=== PATIENT | male | born 1965 | race African-American/Black ===

== ENCOUNTER 2019-02-15 11:48 | Inpatient (IN) | payer MEDICAID ==
[2019-02-15] MEDS ORDERED: NS 1,000 ML IV ONE (12:51)
[2019-02-15] MEDS ORDERED: ONDANSETRON 4 MG/2 ML VIAL IVP ONE (12:51)
[2019-02-15] MEDS ORDERED: METOCLOPRAMIDE 10 MG/2 ML VIAL IVP ONE (12:57)
[2019-02-15] MEDS ORDERED: HYDROmorphONE/DILAUDID 2 MG/ML INJ IVP ONE (12:57)
[2019-02-15] MEDS ORDERED: NS 2,600 ML IV ONE (12:58)
[2019-02-15] MEDS ORDERED: ACETAMINOPHEN 500 MG TAB PO ONE (13:00)
--- NOTE | 2019-02-15 13:02 | EDPHY ---
H & P Stated Complaint: abd pain/N/V Time Seen by Provider: 02/15/19 12:54 HPI/ROS: CHIEF COMPLAINT: Nausea vomiting, fever HISTORY OF PRESENT ILLNESS: The patient is a 53-year-old man who comes to the emergency department complaining of 2 days of nausea and vomiting as well as a fever. He denies chest pain or shortness of breath. No upper respiratory symptoms. No urinary symptoms. He has not had diarrhea. He has not had any sick contacts that he knows. He has never had symptoms like this before. He denies any significant abdominal pain but does have cramping in his left upper quadrant. No back pain or flank pain. Severity: Moderate Modifying factors: No improvement with TheraFlu REVIEW OF SYSTEMS: Constitutional: denies: chills, fever, recent illness, recent injury EENTM: denies: blurred vision, double vision, nose congestion Respiratory: denies: cough, shortness of breath Cardiac: denies: chest pain, irregular heart rate, lightheadedness, palpitations Gastrointestinal/Abdominal: See HPI Genitourinary: denies: dysuria, frequency, hematuria, pain Musculoskeletal: denies: joint pain, muscle pain Skin: denies: lesions, rash, jaundice, bruising Neurological: denies: headache, numbness, paresthesia, tingling, dizziness, weakness Hematologic/Lymphatic: denies: blood clots, easy bleeding, easy bruising Immunologic/allergic: denies: HIV/AIDS, transplant 10 systems reviewed and negative except as noted EXAM: GENERAL: Moderate distress HEAD: Atraumatic, normocephalic. EYES: Pupils equal round and reactive to light, extraocular movements intact, sclera anicteric, conjunctiva are normal. ENT: TMs normal, nares patent, oropharynx clear without exudates. Dry mucous membranes. NECK: Normal range of motion, supple without lymphadenopathy or JVD. LUNGS: Breath sounds clear to auscultation bilaterally and equal. No wheezes rales or rhonchi. HEART: Tachycardic, Regular rhythm without murmurs, rubs or gallops. ABDOMEN: Soft, nontender, normoactive bowel sounds. No guarding, no rebound. No masses appreciated. BACK: No CVA tenderness, no spinal tenderness, step-offs or deformities EXTREMITIES: Normal range of motion, no pitting or edema. No clubbing or cyanosis. NEUROLOGICAL: Cranial nerves II through XII grossly intact. Normal speech, normal gait. 5/5 strength, normal movement in all extremities, normal sensation , normal reflexes PSYCH: Normal mood, normal affect. SKIN: Warm, dry, normal turgor, no visible rashes or lesions. Source: Patient Exam Limitations: No limitations - Personal History Current Tetanus/Diphtheria Vaccine: No - Medical/Surgical History Hx Asthma: No Hx Chronic Respiratory Disease: Yes Hx Diabetes: No Hx Cardiac Disease: Yes Hx Renal Disease: No Hx Cirrhosis: No Hx Alcoholism: No Other PMH: HTN - Family History Significant Family History: No pertinent family hx - Social History Smoking Status: Heavy smoker Alcohol Use: None Constitutional: Initial Vital Signs Temperature (C) 38.1 C 02/15/19 11:58 Heart Rate 131 H 02/15/19 11:58 Respiratory Rate 18 02/15/19 11:58 Blood Pressure 150/90 H 02/15/19 11:58 O2 Sat (%) 88 L 02/15/19 11:58 O2 Delivery Mode Room Air O2 (L/minute) 2 Allergies/Adverse Reactions: No Known Allergies Allergy (Unverified 02/15/19 12:01) Home Medications: Medication Instructions Recorded FLUoxetine [Prozac 20 MG (*)] 20 mg PO DAILY 02/15/19 Gabapentin [Neurontin 300 MG (*)] 300 mg PO BID 02/15/19 traZODone [traZODONE 50MG (*)] 50 mg PO HS 02/15/19 Medical Decision Making - Diagnostics Imaging Results: Imaging Impressions Abdomen CT 02/15/19 12:58 Impression: 1. Airspace consolidation in the lower lungs bilaterally suggestive of multilobar pneumonia. 2. Nonspecific bowel gas pattern without features of obstruction. 3. Bilateral spondylolysis and grade 1 spondylolisthesis with degenerative disk disease at L4-L5. Results called to Dr. Tee Teague at 2:25 PM. Chest X-Ray 02/15/19 14:24 Impression: Bilateral lower lobe pneumonia. Imaging: Discussed imaging studies w/ call center director Radiologist ED Course/Re-evaluation: Patient qualifies as severe sepsis. He is stable vital signs. He has received his fluid bolus. He has received antibiotics and lactate is being repeated. I will admit for bilateral pneumonia. He is slightly hypoxic on room air at 88%. Differential Diagnosis: Partial list of the Differential diagnosis considered include but were not limited to; pneumonia, gastroenteritis and although unlikely based on the history and physical exam, I also considered perforation, ischemia, volvulus, acute coronary disease. Critical Care Time: Critical care time spent by , Dr. Teague exclusive with this patient was 45 minutes, exclusive of the PA time exclusive of procedures. The organ system that was at risk was pulmonary, cardiovascular and I gave IV fluids, antibiotics , consultation and admission to prevent worsening of the patient's condition - Data Points Laboratory Results: Laboratory Results 02/15/19 13:16 02/15/19 13:16 02/15/19 02/15/19 02/15/19 13:16 13:16 13:05 WBC 12.13 10^3/uL H 10^3/uL (3.80-9.50) RBC 4.49 10^6/uL 10^6/uL (4.40-6.38) Hgb 14.6 g/dL g/dL (13.7-17.5) Hct 40.5 % % (40.0-51.0) MCV 90.2 fL fL (81.5-99.8) MCH 32.5 pg pg (27.9-34.1) MCHC 36.0 g/dL g/dL (32.4-36.7) RDW 13.6 % % (11.5-15.2) Plt Count 195 10^3/uL 10^3/uL (150-400) MPV 9.7 fL fL (8.7-11.7) Neut % (Auto) 90.0 % H % (39.3-74.2) Lymph % (Auto) 5.5 % L % (15.0-45.0) [place] % (Auto) 3.9 % L % (4.5-13.0) Eos % (Auto) 0.1 % L % (0.6-7.6) Baso % (Auto) 0.2 % L % (0.3-1.7) Nucleat RBC Rel Count 0.0 % % (0.0-0.2) Absolute Neuts (auto) 10.92 10^3/uL H 10^3/uL (1.70-6.50) Absolute Lymphs (auto) 0.67 10^3/uL L 10^3/uL (1.00-3.00) Absolute Monos (auto) 0.47 10^3/uL 10^3/uL (0.30-0.80) Absolute Eos (auto) 0.01 10^3/uL L 10^3/uL (0.03-0.40) Absolute Basos (auto) 0.02 10^3/uL 10^3/uL (0.02-0.10) Absolute Nucleated RBC 0.00 10^3/uL 10^3/uL (0-0.01) Immature Gran % 0.3 % % (0.0-1.1) Immature Gran # 0.04 10^3/uL 10^3/uL (0.00-0.10) VBG Lactic Acid 4.9 mmol/L H mmol/L (0.7-2.1) Sodium 134 mEq/L L mEq/L (135-145) Potassium 3.6 mEq/L mEq/L (3.5-5.2) Chloride 98 mEq/L mEq/L (97-110) Carbon Dioxide 20 mEq/l L mEq/l (22-31) Anion Gap 16 mEq/L H mEq/L (6-14) BUN 18 mg/dL mg/dL (7-23) Creatinine 0.9 mg/dL mg/dL (0.7-1.3) Estimated GFR > 60 Glucose 170 mg/dL H mg/dL (70-100) Calcium 9.9 mg/dL mg/dL (8.5-10.4) Total Bilirubin 1.2 mg/dL mg/dL (0.1-1.4) Conjugated Bilirubin 0.4 mg/dL mg/dL (0.0-0.5) Unconjugated Bilirubin 0.8 mg/dL mg/dL (0.0-1.1) AST 119 IU/L H IU/L (17-59) ALT 59 IU/L IU/L (21-72) Alkaline Phosphatase 89 IU/L IU/L (38-126) Total Protein 7.7 g/dL g/dL (6.3-8.2) Albumin 4.5 g/dL g/dL (3.5-5.0) Lipase 112 IU/L IU/L (23-300) Medications Given: Discontinued Medications Hydromorphone HCl (Dilaudid) 1 mg IVP EDNOW ONE Stop: 02/15/19 12:58 Last Admin: 02/15/19 13:07 Dose: 1 mg Sodium Chloride (Ns) 1,000 mls @ 0 mls/hr IV ONCE ONE PRN Reason: Wide Open Stop: 02/15/19 12:52 Last Admin: 02/15/19 13:01 Dose: 1,000 mls Sodium Chloride (Ns) 2,600 mls @ 5,200 mls/hr 30 ml/kg infuse over 30 min ( 2600 ml) IV EDNOW ONE PRN Reason: Protocol Stop: 02/15/19 13:27 Last Admin: 02/15/19 13:12 Dose: 2,600 mls Ceftriaxone Sodium/Dextrose (Rocephin 1 Gm (Premix)) 50 mls @ 100 mls/hr IV EDNOW ONE PRN Reason: Protocol Stop: 02/15/19 14:18 Last Admin: 02/15/19 14:18 Dose: 50 mls Azithromycin 500 mg/ Sodium (Chloride) 255 mls @ 255 mls/hr IV EDNOW ONE PRN Reason: Protocol Stop: 02/15/19 15:24 Last Admin: 02/15/19 15:29 Dose: 255 mls Metoclopramide HCl (Reglan Injection) 10 mg IVP EDNOW ONE Stop: 02/15/19 12:58 Last Admin: 02/15/19 13:07 Dose: 10 mg Ondansetron HCl (Zofran) 4 mg IVP EDNOW ONE Stop: 02/15/19 12:52 Last Admin: 02/15/19 13:01 Dose: 4 mg Departure - [facility] Clinical Impression: Severe sepsis Pneumonia Qualifiers: Pneumonia type: due to unspecified organism Laterality: bilateral Lung location : lower lobe of lung Qualified Code(s): J18.1 - Lobar pneumonia, unspecified organism Condition: Critical
[2019-02-15 13:42] LABS: PLATELET COUNT 195 10^3/uL (150-400)
[2019-02-15] MEDS ORDERED: IOPAMIDOL (ISOVUE-300) 100 ML BTL ONE (13:59)
[2019-02-15] MEDS ORDERED: AZITHROMYCIN IV 500 MG in NS 250 ML IV ONE (14:25)
[2019-02-15] MEDS ORDERED: ONDANSETRON 4 MG/2 ML VIAL IVP PRN (14:29)
[2019-02-15] MEDS ORDERED: diphenhydrAMINE 25 MG CAP PO PRN (14:29)
--- NOTE | 2019-02-15 14:56 | PDGENHP ---
History and Physical - Chief Complaint Fever, nausea vomiting, cough - History of Present Illness Source-patient provides history appears reliable. EMR was reviewed and case discussed with ED provider. HPI - this is a pleasant 53-year-old gentleman with past medical history significant for anxiety, depression, HTN listed as but reports not on meds presents emergency department today with complaints of several days of fevers, nausea/vomiting, abdominal pain. Patient also reports that for the last several days he has been experiencing a nonproductive cough. 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 He has been taking Flonase to try to help alleviate the symptoms without significant relief. Today he felt like he was getting water on his lungs. Patient was having fevers and chills at home as well as sweats. He feels quite unwell. He has had no urge to smoke. He denies any shortness of breath or chest pain. He has not had any diarrhea no known sick contacts. He denies any hematemesis, melena or hematochezia. He describes some left upper quadrant abdominal cramping and discomfort to the ED provider. CT abdomen pelvis was unremarkable but incidentally noted multifocal pneumonia. History Information - Allergies/Home Medication List Allergies/Adverse Reactions: No Known Allergies Allergy (Unverified 02/15/19 12:01) Home Medications: Gabapentin 02/15/19 [Last Taken Unknown] Prozac 20 MG (*) 02/15/19 [Last Taken Unknown] traZODone [traZODONE 50MG (*)] 50 mg PO HS 02/15/19 [Last Taken 02/14/19] I have personally reviewed and updated: family history, medical history, social history, surgical history - Past Medical History Additional medical history: Anxiety and depression. Listed in EMR is HTN however patient denies diagnosis. He reports occasional episodes of hypoglycemia. 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 Left ulnar fracture - Surgical History Additional surgical history: Denies - Family History Additional family history: Patient does not know family history. - Social History Smoking Status: Heavy smoker Tobacco Use: Cigarettes (One pack per day) Alcohol Use: Occasionally (Patient reports 1-2 beers most days.) Drug Use: Marijuana (Occasional) Additional social history: Patient works in construction. Cor status-full Review of Systems Review of Systems: ROS: 10pt was reviewed & negative except for what was stated in HPI & below Constitutional: Reports: chills, fever, malaise, recent illness EENMT: Reports: nose congestion, sore throat Cardiac: Reports: no symptoms Respiratory: Reports: cough. Denies: shortness of breath Gastrointestinal: Reports: vomitting, abdominal pain (LUQ), nausea. Denies: diarrhea Genitourinary: Reports: no symptoms Muscolosketal: Reports: joint pain (hand/wrist) Skin: Reports: no symptoms Neurological: Reports: anxiety, depressed (no SI/HI.) Hematologic/Lymphatic: Reports: no symptoms Physical Exam Physical Exam: Selected Entries 02/15/19 11:58 Blood Pressure Automatic Method Heart Rate 131 H Respiratory 18 Rate O2 Sat (%) 88 L Temperature (C) 38.1 C Blood Pressure 150/90 H Mean Arterial 110 H Pressure (MAP) O2 Delivery Room Air Mode Temperature Oral Source Temp Pulse Resp BP Pulse Ox 37.4 C 114 H 16 168/79 H 93 02/15/19 14:27 02/15/19 14:27 02/15/19 14:27 02/15/19 14:27 02/15/19 14:29 Constitutional: other (Patient lays quietly in bed. Appears acutely ill and diaphoretic but nontoxic.) Eyes: PERRL (Slightly decreased reactivity light bilaterally but symmetric.), anicteric sclera, EOMI, No scleral injection Ears, Nose, Mouth, Throat: poor dentition (Dentition in fair condition.), dry mucous membranes, other (No nasal discharge.) Cardiovascular: regular rate and rhythym, no murmur, rub, or gallop, pulses symmetric bilaterally, tachycardia, No edema Peripheral Pulses: 2+: dorsalis-pedis (R), dorsalis-pedis (L) Respiratory: no respiratory distress, inspiratory crackles, other (Patient with some increased work of breathing/tachypnea but no accessory muscle use.), No expiratory wheeze Gastrointestinal: normoactive bowel sounds, soft, non-tender abdomen, distension (Is mild distention but soft.), No guarding, No rebound Genitourinary: no bladder tenderness, No padilla in urethra Skin: warm, other (Patient is diaphoretic) Musculoskeletal: full muscle strength (Patient is able to sit up independently.) , joint tenderness (Ulnar aspect of left wrist with a old well-healed healed deformity.) Neurologic: AAOx3, sensation intact bilaterally, other (Grossly nonfocal), No facial droop Psychiatric: interacting appropriately, anxious, flat affect, other (Patient appears acutely ill but he is pleasant and cooperative.) Lab Data & Imaging Review 02/15/19 13:16 02/15/19 13:16 WBC 12.13 10^3/uL (3.80-9.50) H 02/15/19 13:16 RBC 4.49 10^6/uL (4.40-6.38) 02/15/19 13:16 Hgb 14.6 g/dL (13.7-17.5) 02/15/19 13:16 Hct 40.5 % (40.0-51.0) 02/15/19 13:16 MCV 90.2 fL (81.5-99.8) 02/15/19 13:16 MCH 32.5 pg (27.9-34.1) 02/15/19 13:16 MCHC 36.0 g/dL (32.4-36.7) 02/15/19 13:16 RDW 13.6 % (11.5-15.2) 02/15/19 13:16 Plt Count 195 10^3/uL (150-400) 02/15/19 13:16 MPV 9.7 fL (8.7-11.7) 02/15/19 13:16 Neut % (Auto) 90.0 % (39.3-74.2) H 02/15/19 13:16 Lymph % (Auto) 5.5 % (15.0-45.0) L 02/15/19 13:16 [place] % (Auto) 3.9 % (4.5-13.0) L 02/15/19 13:16 Eos % (Auto) 0.1 % (0.6-7.6) L 02/15/19 13:16 Baso % (Auto) 0.2 % (0.3-1.7) L 02/15/19 13:16 Nucleat RBC Rel Count 0.0 % (0.0-0.2) 02/15/19 13:16 Absolute Neuts (auto) 10.92 10^3/uL (1.70-6.50) H 02/15/19 13:16 Absolute Lymphs (auto) 0.67 10^3/uL (1.00-3.00) L 02/15/19 13:16 Absolute Monos (auto) 0.47 10^3/uL (0.30-0.80) 02/15/19 13:16 Absolute Eos (auto) 0.01 10^3/uL (0.03-0.40) L 02/15/19 13:16 Absolute Basos (auto) 0.02 10^3/uL (0.02-0.10) 02/15/19 13:16 Absolute Nucleated RBC 0.00 10^3/uL (0-0.01) 02/15/19 13:16 Immature Gran % 0.3 % (0.0-1.1) 02/15/19 13:16 Immature Gran # 0.04 10^3/uL (0.00-0.10) 02/15/19 13:16 VBG Lactic Acid 1.1 mmol/L (0.7-2.1) 02/15/19 14:35 Sodium 134 mEq/L (135-145) L 02/15/19 13:16 Potassium 3.6 mEq/L (3.5-5.2) 02/15/19 13:16 Chloride 98 mEq/L (97-110) 02/15/19 13:16 Carbon Dioxide 20 mEq/l (22-31) L 02/15/19 13:16 Anion Gap 16 mEq/L (6-14) H 02/15/19 13:16 BUN 18 mg/dL (7-23) 02/15/19 13:16 Creatinine 0.9 mg/dL (0.7-1.3) 02/15/19 13:16 Estimated GFR > 60 02/15/19 13:16 Glucose 170 mg/dL (70-100) H 02/15/19 13:16 Calcium 9.9 mg/dL (8.5-10.4) 02/15/19 13:16 Total Bilirubin 1.2 mg/dL (0.1-1.4) 02/15/19 13:16 Conjugated Bilirubin 0.4 mg/dL (0.0-0.5) 02/15/19 13:16 Unconjugated Bilirubin 0.8 mg/dL (0.0-1.1) 02/15/19 13:16 AST 119 IU/L (17-59) H 02/15/19 13:16 ALT 59 IU/L (21-72) 02/15/19 13:16 Alkaline Phosphatase 89 IU/L (38-126) 02/15/19 13:16 Total Protein 7.7 g/dL (6.3-8.2) 02/15/19 13:16 Albumin 4.5 g/dL (3.5-5.0) 02/15/19 13:16 Lipase 112 IU/L (23-300) 02/15/19 13:16 Imaging Review: CT Scan of the Abdomen and Pelvis (With Contrast) Clinical Indications: Abd Pain Technique: 90 mL of Isovue 300 were given intravenously by machine power injection. Multidetector helical CT imaging was performed from the diaphragm to the symphysis pubis. Dose reduction techniques were utilized. Findings: Airspace consolidation is present in the lower lungs bilaterally suggestive of multilobar pneumonia. Liver and spleen enhance normally. Pancreas and kidneys enhance symmetrically. The adrenal glands are normal in appearance. Visualized bowel loops are nonspecific in features with mild distention of the cecum. No peritoneal free fluid. CT Pelvis: No masses or free fluid. On sagittal reconstructions, there is evidence of bilateral spondylolysis and grade 1 spondylolisthesis at L4-L5, with marked intervertebral disk height loss. Impression: 1. Airspace consolidation in the lower lungs bilaterally suggestive of multilobar pneumonia. 2. Nonspecific bowel gas pattern without features of obstruction. 3. Bilateral spondylolysis and grade 1 spondylolisthesis with degenerative disk disease at L4-L5. Results called to Dr. Tee Teague at 2:25 PM. Dictated By: Simon Fu MD Visualized and Interpreted Chest x-ray results: Yes Visualized and Interpreted imaging results: Yes Assessment & Plan Assessment: 53-year-old gentleman with a history of anxiety and depression who presents emergency department with complaints of 1 week of cough and several days of fever, nausea vomiting. #Multifocal Pneumonia (Acute) - seen on CT abdomen pelvis as patient complained of some left upper quadrant discomfort. Chest x-ray is ordered and pending. Patient has been started on Rocephin and azithromycin. Will plan to continue for community acquired coverage. incentive spirometry. #Severe sepsis (Acute) - patient qualifies with fever, tachypnea, leukocytosis and elevated lactate greater than 4 patient does not clinically appear to be in septic shock however. Additionally patient's repeat lactate after appropriate IV fluid bolus is normalized to 1.1. Blood cultures x2 are pending. Patient antibiotics and therapy as noted above. Monitor patient's vital signs closely. #Hypoxia - secondary to pneumonia. Supplemental oxygen to maintain O2 sats greater than 90. Incentive spirometer as noted above. # hyperglycemia - patient reports normally has episodes of hypoglycemia. He denies any history of diabetes. This is nonfasting lab will plan to check in the morning could be stress response. #anxiety/depression - continue Prozac and gabapentin. #tobacco dependence - patient encouraged to quit altogether. Nicotine patch ordered #hx of daily etoh - patient reports drinking 1 or 2 beers on most days of the week. No history of withdrawals. Will monitor closely. FEN - continuous IV fluids after bolus as patient does appear to be Dehydrated. Electrolytes will be monitored replaced if needed. At this time are adequate. Diet as tolerated. PPX-SCDs. Lovenox as anticipate patient will be here for several days. Cor status-full. Disposition-patient admitted inpatient status on [facility] floor for close monitoring in setting of Micheline with severe sepsis.
[2019-02-15] MEDS ORDERED: AZITHROMYCIN IV 500 MG in NS 250 ML IV SCH ×2 (15:00→18:30)
[2019-02-15] MEDS ORDERED: PROMETHAZINE HCL 25 MG/ML INJ IVP PRN (18:40)
[2019-02-15] MEDS: NS 1,000 ML IV SCH (18:45)
[2019-02-16] MEDS: GABAPENTIN 300 MG CAP PO SCH ×3 (00:29→22:38)
[2019-02-16] MEDS: traZODone 50 MG TAB PO SCH ×2 (00:29→22:38)
[2019-02-16] MEDS: NICOTINE 21 MG/24 HR PATCH TD SCH ×2 (03:25→08:36)
[2019-02-16 04:25] LABS: PLATELET COUNT 127 10^3/uL (150-400)
[2019-02-16] MEDS: ENOXAPARIN 40 MG/0.4 ML SYR SC SCH (08:36)
[2019-02-16] MEDS: FLUoxetine 20 MG CAP PO SCH (08:36)
[2019-02-16] MEDS ORDERED: PROTOCOL POTASSIUM 1 DOSE MISC PRN (09:36)
[2019-02-16] MEDS: NS 1,000 ML IV SCH ×2 (11:13→20:25)
[2019-02-16] MEDS ORDERED: POTASSIUM CL 10 MEQ TAB PO ONE ×2 (11:14→19:58)
--- NOTE | 2019-02-16 11:45 | PDMN ---
Medical Necessity Medical [place] [facility] [place] S[place], A-3 days: 53 yo w/ c/o cough, fever, n/v. Eval reveals acute multifocal pneumonia w/ severe sepsis. Lactic acid >4, pt is tachy 110-120, hypoxemic sat 88%RA requiring O2. IVF, IV antibx started. BC pending. [place] [facility] [place] for sepsis w/ hemodynamic instability, hypoxemia, parenteral antimicrobial tx needed on IP basis. Anticipate>2Mn for management of sepsis.
[2019-02-16] MEDS: ACETAMINOPHEN 325 MG TAB PO PRN ×2 (14:13→22:41)
[2019-02-16] MEDS ORDERED: AZITHROMYCIN IV 500 MG in NS 250 ML IV SCH (15:00)
--- NOTE | 2019-02-16 15:29 | ASMTCMCOM ---
CM Note CM Note Notes: [id number] Case Management Note Discussed with RN and reviewed chart. Pt admitted for pneumonia and severe sepsis. There are no therapy evals ordered today. Pt is ambulating without difficulty. Referral to [facility] for community supports at discharge. Case Management d/c poc: anticipating independent with follow up as directed. Case Management available if needs change. Date Signed: 02/16/2019 03:29 PM Electronically Signed By:Lisa Pope RN
--- NOTE | 2019-02-16 17:11 | HOSPPROG ---
Hospitalist Progress Note Assessment/Plan: * Pneumonia -IV ceftriaxone + azithro * Severe Sepsis - lactate 4.9 -improved with IVF resuscitation * Acute respiratory failure -patient still very dyspneic with ambulation, 83% Room air -couldn't get through a shower due respiratory distress * Hyperglycemia -check HgA1c * Etoh/tobacco - watch for withdrawal Subjective: Recurrent fever this afternoon. 83% Room air, had episode of shaking rigors while in shower this afternoon. Objective: Vital Signs Temp Pulse Resp BP Pulse Ox 37.6 C 98 20 110/63 96 02/16/19 15:25 02/16/19 15:25 02/16/19 15:25 02/16/19 15:25 02/16/19 15:25 Microbiology 02/15/19 14:30 Respiratory Panel (PCR) - Final Nasal, Sinus - Swab No Organism Detected By Pcr Laboratory Results 02/16/19 04:02 02/16/19 04:02 02/15/19 02/16/19 02/17/19 05:59 05:59 05:59 Intake Total 4800 Output Total 500 250 Balance 4300 -250 CXR viewed, my personal interpretation is - lower lobe infiltrate ct abd - negative except for PNA - Physical Exam Constitutional: no apparent distress, appears nourished, not in pain Cardiovascular: regular rate and rhythym, no murmur, rub, or gallop Respiratory: no respiratory distress, no rales or rhonchi, clear to auscultation Gastrointestinal: normoactive bowel sounds, soft, non-tender abdomen, no palpable masses Skin: no rashes or abrasions, no fluctuance, no induration Neurologic: AAOx3, sensation intact bilaterally Psychiatric: interacting appropriately, not anxious, not encephalopathic, thought process linear ICD10 Worksheet Patient Problems: Problems Problem Status Onset Pneumonia Acute Severe sepsis Acute
[2019-02-17 04:34] LABS: PLATELET COUNT 141 10^3/uL (150-400)
[2019-02-17] MEDS ORDERED: POTASSIUM CL 10 MEQ TAB PO ONE ×2 (07:39→22:37)
[2019-02-17] MEDS: FLUoxetine 20 MG CAP PO SCH (08:42)
[2019-02-17] MEDS: GABAPENTIN 300 MG CAP PO SCH ×2 (08:42→21:00)
[2019-02-17] MEDS: ENOXAPARIN 40 MG/0.4 ML SYR SC SCH (08:42)
[2019-02-17] MEDS: NICOTINE 21 MG/24 HR PATCH TD SCH (08:42)
[2019-02-17] MEDS: ACETAMINOPHEN 325 MG TAB PO PRN ×3 (08:42→16:51)
[2019-02-17] MEDS ORDERED: LIDOCAINE 2% 100 MG/5 ML SYR ONE (12:13)
[2019-02-17] MEDS ORDERED: PROPOFOL/EMULSION 500 MG/50 ML BOTTLE IV ONE (12:13)
[2019-02-17] MEDS ORDERED: TEARS/DEXTRAN 70/HYPROMELLOSE 15 ML OPHT.BTL EACHEYE PRN (16:57)
[2019-02-17] MEDS ORDERED: MAGNESIUM HYDROXIDE 30 ML UDCUP PO PRN (16:58)
[2019-02-17] MEDS ORDERED: POLYETHYLENE GLYCOL 3350 17 GM PKT PO PRN (16:58)
[2019-02-17] MEDS ORDERED: LACTULOSE 20 GM/30 ML UDCUP PO PRN (16:58)
[2019-02-17] MEDS ORDERED: BISACODYL 10 MG SUPP PR PRN (16:58)
--- NOTE | 2019-02-17 17:05 | HOSPPROG ---
Hospitalist Progress Note Assessment/Plan: * Pneumonia - worsening -change antibiotic to Levaquin * Severe Sepsis - lactate 4.9 -improved with IVF resuscitation * Acute respiratory failure -worsening oxygen requirement - 73% on 3L, now up to 5L * Hyperglycemia -HgA1c 5.2 * Etoh/tobacco - watch for withdrawal * h/o distant IVDA -check HIV, reports to nursing he is Hep C + Subjective: Bad night, oxygen had to be turned up to 5L. Still having intermitted rigors and shaking chills. Objective: Vital Signs Temp Pulse Resp BP Pulse Ox 37.3 C 95 18 129/78 H 97 02/17/19 15:39 02/17/19 15:39 02/17/19 15:39 02/17/19 15:39 02/17/19 15:39 Laboratory Results 02/17/19 03:49 02/17/19 03:49 02/16/19 02/17/19 02/18/19 05:59 05:59 05:59 Intake Total 4800 2119 1549 Output Total 500 950 675 Balance 4300 1169 874 CXR viewed, my personal interpretation is - worsening infiltrates tele reviewed - NSR - Physical Exam Constitutional: no apparent distress, appears nourished, not in pain Cardiovascular: regular rate and rhythym, no murmur, rub, or gallop Respiratory: no respiratory distress, no rales or rhonchi, clear to auscultation Gastrointestinal: normoactive bowel sounds, soft, non-tender abdomen, no palpable masses Skin: no rashes or abrasions, no fluctuance, no induration Neurologic: AAOx3, sensation intact bilaterally Psychiatric: interacting appropriately, not anxious, not encephalopathic, thought process linear ICD10 Worksheet Patient Problems: Problems Problem Status Onset Pneumonia Acute Severe sepsis Acute
--- NOTE | 2019-02-17 20:43 | HOSPPROG ---
Hospitalist Progress Note Assessment/Plan: Cross cover note: called by nursing as patient feeling his lungs feel worse since changing abx. Noted that this am cxr appeared significantly worse with bilateral diffuse infiltrates developing since first xray. Repeat CXR without change from this am despite patient feeling worse, o2 needs stable. Abx changed from ctx/azith to levofloxacin monotherapy per day team. Will give lasix x 1, ordered urinary legionella ag given diffuse infiltrates. Consider addition of broad spectrum abx if patient decompensates, discussed with Dr. Almanza. Objective: Vital Signs Temp Pulse Resp BP Pulse Ox 37.1 C 91 24 H 133/77 H 97 02/17/19 19:44 02/17/19 19:44 02/17/19 19:44 02/17/19 19:44 02/17/19 19:44 Laboratory Results 02/17/19 03:49 02/17/19 18:14 02/16/19 02/17/19 02/18/19 05:59 05:59 05:59 Intake Total 4800 2119 1649 Output Total 500 950 675 Balance 4300 1169 974 ICD10 Worksheet Patient Problems: Problems Problem Status Onset Pneumonia Acute Severe sepsis Acute
[2019-02-17] MEDS: traZODone 50 MG TAB PO SCH (21:00)
[2019-02-17] MEDS: SENNOSIDES/DOCUSATE SODIUM TAB PO SCH (21:01)
[2019-02-17] MEDS ORDERED: FUROSEMIDE 20 MG/2 ML VIAL IVP ONE (21:29)
[2019-02-18 06:15] LABS: HIV TYPE 1 AND 2 NEGATIVE (NEGATIVE)
[2019-02-18] MEDS ORDERED: POTASSIUM CL 10 MEQ TAB PO ONE ×3 (08:46→19:26)
[2019-02-18] MEDS: ENOXAPARIN 40 MG/0.4 ML SYR SC SCH (08:47)
[2019-02-18] MEDS: ACETAMINOPHEN 325 MG TAB PO PRN ×2 (08:47→20:52)
[2019-02-18] MEDS: SENNOSIDES/DOCUSATE SODIUM TAB PO SCH ×2 (08:47→20:53)
[2019-02-18] MEDS: NICOTINE 21 MG/24 HR PATCH TD SCH (08:48)
[2019-02-18] MEDS: FLUoxetine 20 MG CAP PO SCH (08:48)
[2019-02-18] MEDS: GABAPENTIN 300 MG CAP PO SCH ×2 (08:48→20:53)
[2019-02-18] MEDS: ONDANSETRON DISINTEGRATING 4 MG TAB PO PRN ×2 (09:16→17:38)
--- NOTE | 2019-02-18 16:44 | HOSPPROG ---
Hospitalist Progress Note Assessment/Plan: * Pneumonia - no improvement on Ceftriaxone/azithro -doing better on Levaquin * Severe Sepsis - lactate 4.9 -improved with IVF resuscitation * Acute respiratory failure -still very tenuous respiratory status - 84% on 6L with ambulation today -DC when respiratory status improved * Hyperglycemia -HgA1c 5.2 * Etoh/tobacco - watch for withdrawal * h/o distant IVDA -HIV negative, reports to nursing he is Hep C + Subjective: Increased respiratory distress again last night, had repeat CXR, feeling a little better today Objective: Vital Signs Temp Pulse Resp BP Pulse Ox 37.1 C 88 20 135/79 H 97 02/18/19 15:42 02/18/19 15:42 02/18/19 15:42 02/18/19 15:42 02/18/19 15:42 Laboratory Results 02/17/19 03:49 02/18/19 04:31 02/17/19 02/18/19 02/19/19 05:59 05:59 05:59 Intake Total 211 2149 Output Total 470 6409 Balance 1169 -326 tele - NSR CXR viewed, my personal interpretation is - continued severe bilateral infiltrates - Physical Exam Constitutional: no apparent distress, appears nourished, not in pain Cardiovascular: regular rate and rhythym, no murmur, rub, or gallop Respiratory: no respiratory distress, inspiratory crackles, No expiratory wheeze , No rhonchi Gastrointestinal: normoactive bowel sounds, soft, non-tender abdomen, no palpable masses Skin: no rashes or abrasions, no fluctuance, no induration Neurologic: AAOx3, sensation intact bilaterally Psychiatric: interacting appropriately, not anxious, not encephalopathic, thought process linear ICD10 Worksheet Patient Problems: Problems Problem Status Onset Pneumonia Acute Severe sepsis Acute
[2019-02-18] MEDS: traZODone 50 MG TAB PO SCH (20:53)
[2019-02-19] MEDS: NICOTINE 21 MG/24 HR PATCH TD SCH (09:17)
[2019-02-19] MEDS: ENOXAPARIN 40 MG/0.4 ML SYR SC SCH (09:17)
[2019-02-19] MEDS: FLUoxetine 20 MG CAP PO SCH (09:18)
[2019-02-19] MEDS: SENNOSIDES/DOCUSATE SODIUM TAB PO SCH (09:18)
[2019-02-19] MEDS: GABAPENTIN 300 MG CAP PO SCH ×2 (09:19→09:24)
[2019-02-19] MEDS ORDERED: POTASSIUM CL 10 MEQ TAB PO ONE (10:51)
[2019-02-19] MEDS ORDERED: predniSONE 20 MG TAB PO SCH (13:30)
[2019-02-19 13:56] VITALS: BP 126/96
--- NOTE | 2019-02-19 14:09 | PDDCSUM ---
Discharge Summary Discharge Summary: 53 yo male admitted with pneumonia. Now better. See below. He will be complete a course of Levaquin. Pred burst has also been added. F/U: with PCP next week DDX: * Pneumonia - no improvement on Ceftriaxone/azithro -doing better on Levaquin * Severe Sepsis - lactate 4.9 -improved with IVF resuscitation * Acute respiratory failure, resolved -now on RA * Hyperglycemia -HgA1c 5.2 * Etoh/tobacco - no WD * h/o distant IVDA -HIV negative, reports to nursing he is Hep C + Exam: NAD AAOX3 RRR DECREASED LUNG SOUNDS, NORMAL WORK OF BREATHING S/NT/ND MEDS: SEE MED REC TOTAL TIME SPENT ON D/C IS 35 MINS
== END 2019-02-19 13:57 | disposition home or self-care (01) | DRG 720 ==
LOC: F2W 18:32
PROVIDERS: ADMIT Family Medicine; ATTEND Family Medicine
DX: A41.9 Sepsis, unspecified organism (principal); J96.00 Acute respiratory failure, unspecified whether with hypoxia or hypercapnia; R65.20 Severe sepsis without septic shock; J18.9 Pneumonia, unspecified organism; R73.9 Hyperglycemia, unspecified; F17.200 Nicotine dependence, unspecified, uncomplicated; F32.9 Major depressive disorder, single episode, unspecified; F41.9 Anxiety disorder, unspecified
CPT/HCPCS: 87449-90; 96365; J0456; J0696; J1170; J1650; J1940; J1956; J2001; J2405; J2704; J2765; J7512; Q9967

== ENCOUNTER 2019-03-01 21:30 | Emergency (ER) | payer MEDICAID ==
--- NOTE | 2019-03-01 22:10 | EDPHY ---
H & P Stated Complaint: SI Source: Patient Exam Limitations: No limitations - Personal History Current Tetanus Diphtheria and Acellular Pertussis (TDAP): Yes - Medical/Surgical History Hx Asthma: No Hx Chronic Respiratory Disease: Yes Hx Diabetes: No Hx Cardiac Disease: Yes Hx Renal Disease: No Hx Cirrhosis: No Hx Alcoholism: No Other PMH: HTN - Family History Significant Family History: No pertinent family hx - Social History Smoking Status: Heavy smoker Alcohol Use: Heavy Drug Use: Other Time Seen by Provider: 03/01/19 21:56 HPI/ROS: CHIEF COMPLAINT: Hearing voices, suicidal HISTORY OF PRESENT ILLNESS: Patient is a 53-year-old man with history of schizophrenia who currently takes BuSpar and trazodone. He also admits to daily alcohol abuse and methamphetamine use 3 days ago. He states that his voices are worsening and he feels suicidal because he cannot make them stop. He also feels somewhat paranoid and thinks people are after him. No fevers. No chest pain. No head injury. No headache. Severity: Moderate Modifying factors: None REVIEW OF SYSTEMS: Constitutional: denies: chills, fever, recent illness, recent injury EENTM: denies: blurred vision, double vision, nose congestion Respiratory: denies: cough, shortness of breath Cardiac: denies: chest pain, irregular heart rate, lightheadedness, palpitations Gastrointestinal/Abdominal: denies: abdominal pain, diarrhea, nausea, vomiting, blood streaked stools Genitourinary: denies: dysuria, frequency, hematuria, pain Musculoskeletal: denies: joint pain, muscle pain Skin: denies: lesions, rash, jaundice, bruising Neurological: See HPI denies: headache, numbness, paresthesia, tingling, dizziness, weakness Hematologic/Lymphatic: denies: blood clots, easy bleeding, easy bruising Immunologic/allergic: denies: HIV/AIDS, transplant 10 systems reviewed and negative except as noted EXAM: GENERAL: Well-appearing, well-nourished and in no acute distress. HEAD: Atraumatic, normocephalic. EYES: Pupils equal round and reactive to light, extraocular movements intact, sclera anicteric, conjunctiva are normal. ENT: TMs normal, nares patent, oropharynx clear without exudates. Moist mucous membranes. NECK: Normal range of motion, supple without lymphadenopathy or JVD. LUNGS: Breath sounds clear to auscultation bilaterally and equal. No wheezes rales or rhonchi. HEART: Regular rate and rhythm without murmurs, rubs or gallops. ABDOMEN: Soft, nontender, normoactive bowel sounds. No guarding, no rebound. No masses appreciated. BACK: No CVA tenderness, no spinal tenderness, step-offs or deformities EXTREMITIES: Normal range of motion, no pitting or edema. No clubbing or cyanosis. NEUROLOGICAL: Cranial nerves II through XII grossly intact. Normal speech, normal gait. 5/5 strength, normal movement in all extremities, normal sensation , normal reflexes PSYCH: Somewhat distracted, slightly overactive physical activity, tense, logical conversation, normal rate, SKIN: Warm, dry, normal turgor, no visible rashes or lesions. (Tee Teague) Constitutional: Initial Vital Signs Temperature (C) 36.8 C 03/01/19 21:33 Heart Rate 108 H 03/01/19 21:33 Respiratory Rate 16 03/01/19 21:33 Blood Pressure 126/85 H 03/01/19 21:33 O2 Sat (%) 94 03/01/19 21:33 O2 Delivery Mode Room Air Allergies/Adverse Reactions: No Known Allergies Allergy (Unverified 02/15/19 12:01) Home Medications: Medication Instructions Recorded traZODone [traZODONE 50MG (*)] 50 mg PO HS 02/15/19 Buspar (*) 03/01/19 Medical Decision Making ED Course/Re-evaluation: I will place the patient on a hold and lab work is been ordered. 10:30 p.m. patient is pacing in the hallway. Now agreeable to Zyprexa 11:00 p.m. Care transferred to Dr. Zbigniew Underwood. Patient is medically clear. (Tee Teague) 0630AM: Sleeping 0700AM: Patient signed over to Dr. King. Pending PAVEL eller. (Zbigniew Underwood) 7:00 a.m.-I assumed care of this patient at shift change. History of schizophrenia and methamphetamine abuse. On an M1 hold for worsening psychosis and suicidal ideation. Mental health evaluation pending. 2pm: signed over to Dr. Jimenez. PAVEL eller in progress (Annetta King) Differential Diagnosis: Partial list of the Differential diagnosis considered include but were not limited to; schizophrenia, polysubstance abuse, suicidal ideation, withdrawal and although unlikely based on the history and physical exam, I also considered head injury, infection. (Tee Teague) Other Provider: Care assumed at 2:00 p.m. Plan for mental health evaluation which is in progress. Disposition pending their recommendations. 1418: Per Dr. Hyatt recommendation to vacate hold and discharge; no plan, no intent despite thoughts. Not felt by psychiatric skill training program coordinator to be acutely danger to himself at this time. (Louis Jimenez) - Data Points Laboratory Results: Laboratory Results 03/01/19 22:10 03/01/19 22:10 Medications Given: Discontinued Medications Lorazepam (Ativan) 2 mg PO ONCE ONE Stop: 03/01/19 23:31 Last Admin: 03/01/19 23:35 Dose: 2 mg Olanzapine (Zyprexa Zydis) 10 mg PO EDNOW ONE Stop: 03/01/19 22:26 Last Admin: 03/01/19 22:31 Dose: 10 mg Departure - Departure Disposition: Home, Routine, Self-Care Clinical Impression: Suicidal ideation, Polysubstance abuse Schizophrenia Qualifiers: Schizophrenia type: paranoid schizophrenia Qualified Code(s): F20.0 - Paranoid schizophrenia Condition: Fair Instructions: Schizophrenia (ED), Suicide Prevention (ED) Referrals: [facility],. [Clinic] - As per Instructions
[2019-03-01] MEDS ORDERED: OLANZapine DISINTEGR 10 MG TAB PO ONE (22:25)
[2019-03-01 22:31] LABS: PLATELET COUNT 422 10^3/uL (150-400)
[2019-03-01] MEDS ORDERED: LORazepam 1 MG TAB PO ONE (23:30)
[2019-03-02 14:30] VITALS: BP 128/67
--- NOTE | 2019-03-02 14:50 | ASMTTCLDSP ---
TLC Discharge Disposition Disposition: Answers: Discharge If Answers: Yes DISCHARGED: Patient/family given suicide hotline info & SAMHSA brochure? Discharge Concerns/Recommendations: Notes: In consultation with [facility] ED physician, Louis Jimenez MD, and on-call psychiatrist, Jolene Hyatt MD, both concurred that the patient does not appear to meet 27-65 criteria requiring psychiatric hospitalization as patient does not appear to be an imminent risk of harm to self/others/gravely disabled due to a mental illness condition. Dr. Hyatt provided telephone order read back vacating M1 hold at 13:45 hrs. The patient was given local hotline information and SAMSHA brochure after an attempt and encouraged to follow up with [facility]. Was patient given the Answers: Not applicable Inpatient Behavioral Health Prohibited Belongings List while in the ED? Psychiatrist vacating M1 Clemente Hyatt MD Hold: Date and time M1 hold 03/02/2019 01:45 PM vacated (time format is hh:mm): Type of Hold: Answers: M1/72-hour Hold Hold initiated by: Answers: ED Physician Date Signed: 03/02/2019 02:50 PM Electronically Signed By:Luann Rivera
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
== END 2019-03-02 15:07 | disposition home or self-care (01) ==
LOC: EEVIPCON 21:30
DX: R45.851 Suicidal ideations (principal); F20.0 Paranoid schizophrenia; I10 Essential (primary) hypertension; F10.10 Alcohol abuse, uncomplicated; Z79.899 Other long term (current) drug therapy
CPT/HCPCS: 80305; G0480